=== PATIENT | male | born 2005 | race Caucasian/White ===

== ENCOUNTER 2024-06-30 12:52 | Emergency (ER) | payer OTHER ==
[~2024-06-30] VITALS: Ht 177.8 cm; Wt 94.7 kg
[2024-06-30] MEDS: LIDOCAINE 1% MDV 20ML VIAL SC ONE (15:39)
[2024-06-30] MEDS ORDERED: BACT800T5 PO (15:47)
[2024-06-30 15:52] VITALS: BP 135/71; TEMP 98.1; O2SAT 100
== END 2024-06-30 16:03 | disposition home or self-care (01) ==
LOC: M ED 12:52
DX: H60.02 Abscess of left external ear (principal); Z91.013 Allergy to seafood; Z79.2 Long term (current) use of antibiotics

== ENCOUNTER 2024-08-30 17:03 | Emergency (ER) | payer OTHER ==
[~2024-08-30] VITALS: Ht 177.8 cm; Wt 92.3 kg
[~2024-08-30 17:03] MED LIST: BACT800T5 PO
[2024-08-30 17:07] VITALS: TEMP 98.2
[2024-08-30] MEDS: NEOSPORIN OINT 0.9 GM PKT TOP ONE (18:07)
[2024-08-30 18:14] VITALS: BP 133/81; O2SAT 97
[2024-08-30] MEDS ORDERED: CEPH500C PO (18:16)
== END 2024-08-30 18:25 | disposition home or self-care (01) ==
LOC: M ED 17:03
DX: Z48.00 Encounter for change or removal of nonsurgical wound dressing (principal); S61.212A Laceration without foreign body of right middle finger without damage to nail, initial encounter; X58.XXXA Exposure to other specified factors, initial encounter

== ENCOUNTER 2024-12-27 01:24 | Emergency (ER) | payer OTHER ==
[~2024-12-27] VITALS: Ht 177.8 cm; Wt 97.3 kg
[~2024-12-27 01:24] MED LIST changes: +CEPH500C PO
[2024-12-27] MEDS: KETOROLAC 30 MG/ML 1 ML VIAL IV ONE (02:34)
[2024-12-27] MEDS: METHOCARBAMOL 1,000 MG/10 ML VIAL IV ONE (02:34)
[2024-12-27] MEDS ORDERED: NAPR-837 PO (03:19)
[2024-12-27] MEDS ORDERED: METH-1165 PO (03:19)
[2024-12-27 03:31] VITALS: BP 130/63; TEMP 97.6; O2SAT 96
== END 2024-12-27 03:33 | disposition home or self-care (01) ==
LOC: M ED 01:24
DX: M54.50 Low back pain, unspecified (principal); Z91.013 Allergy to seafood; Z79.1 Long term (current) use of non-steroidal anti-inflammatories (NSAID); Z79.899 Other long term (current) drug therapy
CPT/HCPCS: 96374; 99284; J1885; J2800